=== PATIENT | female | born 1960 ===

== ENCOUNTER 2016-09-27 10:03 | Emergency (ER) | payer MEDICAID ==
[2016-09-27 10:20] VITALS: RESP 16; TEMP 97.7; O2SAT 98
--- NOTE | 2016-09-27 11:16 | C.PDOC ---
History Of Present Illness Pt c/o left posterior neck pain radiating down LUE. Time Seen by Provider: 09/27/16 10:20 Chief Complaint (Nursing): Back Pain History Per: Patient, Family Onset/Duration Of Symptoms: Days (1), Waxing/Waning Current Symptoms Are (Timing): Still Present Quality Of Discomfort: Sharp, "Pain" Severity: Moderate Exacerbating Factor(s): Turning, Movement Additional History Per: Prior Records Past Medical History Reviewed: Historical Data, Nursing Documentation, Vital Signs Vital Signs: Last Vital Signs Temp 97.7 F 09/27/16 10:12 Pulse 80 09/27/16 10:12 Resp 16 09/27/16 10:12 BP 135/80 09/27/16 10:12 Pulse Ox 98 09/27/16 11:16 - Medical History PMH: No Chronic Diseases Surgical History: Appendectomy Family History: States: Unknown Family Hx - Social History Hx Alcohol Use: No Hx Substance Use: No Review Of Systems Except As Marked, All Systems Reviewed And Found Negative. Constitutional: Negative for: Fever, Weakness ENT: Negative for: Throat Pain Cardiovascular: Negative for: Chest Pain Respiratory: Negative for: Shortness of Breath, Hemoptysis Gastrointestinal: Negative for: Vomiting, Abdominal Pain Musculoskeletal: Positive for: Neck Pain. Negative for: Leg Pain Skin: Negative for: Rash Neurological: Negative for: Weakness, Numbness, Seizures, Altered Mental Status Physical Exam - Physical Exam Appears: Non-toxic, No Acute Distress Skin: Normal Color, Warm, Dry, No Rash Head: Atraumatic, Normacephalic Eye(s): bilateral: Normal Inspection, PERRL, EOMI Neck: Normal ROM, Midline Cervical Tenderness (left), No Paracervical Tenderness , No Step Off Deformity, Supple Chest: Symmetrical Cardiovascular: Rhythm Regular Respiratory: Normal Breath Sounds, No Accessory Muscle Use Gastrointestinal/Abdominal: Soft, No Tenderness Back: No CVA Tenderness, No Vertebral Tenderness Extremity: Normal ROM, No Deformity Extremity: Bilateral: Normal Color And Temperature Pulses: Left Radial: Normal Neurological/Psych: Oriented x3, Normal Speech, Normal Cognition, Normal Cranial Nerves, Normal Motor, Normal Sensation ED Course And Treatment ECG: Interpreted By Me, Viewed By Me ECG Rhythm: Sinus Rhythm ECG Interpretation: No Acute Changes Rate From EC O2 Sat by Pulse Oximetry: 98 Pulse Ox Interpretation: Normal - Radiology CXR: Interpreted by Me, Viewed By Me CXR Interpretation: Yes: No Acute Disease, Heart Size (wnl), Mediastinum (wnl) - Other Rad C-spine X-rays X-Ray: Interpreted by Me, Viewed By Me Interpretation: No acute fx or subluxation. DJD. Progress Note: Pt placed in soft cervical collar. Reassessment Condition: Improved Disposition Counseled Patient/Family Regarding: Studies Performed, Diagnosis, Need For Followup, Rx Given - Disposition Referrals: Chaparrita Fuller MD [Staff Provider] - Disposition: HOME/ ROUTINE Disposition Time: 12:22 Condition: IMPROVED Additional Instructions: Use the neck collar as instructed. Follow up with your doctor within 1-2 weeks for further evaluation and treatment. Return to the ER if you develop worsening of symptoms or if you have any other concerns. Prescriptions: Cyclobenzaprine [Cyclobenzaprine HCl] 10 mg PO TID PRN #15 tab PRN Reason: Muscle Spasm Ibuprofen [Motrin Tab] 400 mg PO TID PRN #30 tab PRN Reason: Pain, Moderate (4-7) Instructions: Soft Cervical Collar (ED), Cervical Radiculopathy (ED) Forms: [employer] ([employer]) Print Language: PORTUGUESE - Clinical Impression Clinical Impression: Left cervical radiculopathy
[2016-09-27 12:33] VITALS: BP 101/66; PULSE 75
--- NOTE | 2016-09-27 13:23 | RAD ---
HISTORY: Left sided neck/shoulder region pain. COMPARISON: No prior. TECHNIQUE: Chest PA and lateral FINDINGS: LUNGS: Mild venous congestion. PLEURA: No significant pleural effusion identified. No pneumothorax apparent. CARDIOVASCULAR: Normal. OSSEOUS STRUCTURES: Lobulated ossific density at the level of the left greater tuberosity. VISUALIZED UPPER ABDOMEN: Normal. OTHER FINDINGS: None. IMPRESSION: Mild venous congestion.
--- NOTE | 2016-09-27 15:37 | RAD ---
PROCEDURE: Cervical Spine Radiographs. HISTORY: Pain. COMPARISON: None. FINDINGS: BONES: Vertebral bodies maintained in height. Normal alignment maintained. Straightening of the normal lordotic curvature noted indicative of possible muscular spasm. DISC SPACES: Narrowing of C5-6 and C6-7 disc spaces with minimal marginal productive bony change, consistent with degenerative disc disease. Remaining disc spaces maintained in height. SOFT TISSUES: Normal. No prevertebral soft tissue swelling. OTHER FINDINGS: None. IMPRESSION: No fracture/ dislocation. Degenerative disc disease C5-6 and C6-7. Possible muscular spasm
--- NOTE | 2016-10-10 20:26 | CARD ---
APPROVED REPORT EKG Measurement Heart [id number] <Conclusion> Normal sinus rhythm Normal ECG
== END 2016-09-27 12:32 | disposition home or self-care (01) ==
LOC: C.ER 10:03
DX: M54.12 Radiculopathy, cervical region (principal)
CPT/HCPCS: 71020; 72040; 96372; 99284; J1885